=== PATIENT | male | born 1985 | race African-American/Black ===

== ENCOUNTER 2025-11-13 16:31 | Inpatient (IN) | payer MEDICAID ==
[~2025-11-13] VITALS: Ht 167.6 cm; Wt 80.7 kg
[2025-11-13 16:39] VITALS: O2SAT 99
[2025-11-13] MEDS: IBUPROFEN 600MG TABLET PO ONE (20:11)
[2025-11-13 21:43] LABS: CREATININE 1.1 mg/dL (0.6-1.3); UREA NITROGEN BLOOD 11 mg/dL (9-23)
[2025-11-13 21:44] LABS: BASOPHILS % 0.4 % (0.0-2.0); EOSINOPHILS % 3.5 % (0.0-5.0); HEMATOCRIT. 50.0 % (42.0-52.0); HEMOGLOBIN. 16.0 g/dL (14.0-18.0); LYMPHOCYTES % 53.5 % (20.0-50.0); MEAN PLATELET VOLUME 8.6 fl (7.4-10.4); MONOCYTES % 10.7 % (2.0-8.0); NEUTROPHILS % 31.9 % (40.0-76.0); PLATELET 188 x1000/uL (130-400); PROTEIN TOTAL 8.2 g/dL (6.0-8.3); RED BLOOD CELL COUNT 5.67 mill/uL (4.7-6.1); RED CELL DISTRIBUTION WIDTH 13.5 % (11.6-14.6)
[2025-11-13 21:45] LABS: ASPARTATE AMINOTRANSFERASE 52 IU/L (<34); BILIRUBIN DIRECT 0.3 mg/dL (<=3.0); BILIRUBIN TOTAL 1.0 mg/dL (0.1-1.0)
[2025-11-13] MEDS: CEFTRIAXONE 1GM/50ML 50 ML IV ONE (23:01)
[2025-11-13] MEDS: MORPHINE SULFATE 4 MG/ML INJ (FOR IV/IM USE) IV ONE (23:03)
[2025-11-14] MEDS: VANCOMYCIN 1G PREMIX 200 ML IV ONE (01:14)
[2025-11-14 03:06] VITALS: BP 116/74; PULSE 52; RESP 20; TEMP 36.418
[2025-11-14] MEDS ORDERED: HYDROCODONE/ACETAMINOPHEN 5/325MG TABLET PO PRN (03:15)
[2025-11-14 04:00] VITALS: BP 118/65; PULSE 62; RESP 18; TEMP 35.7; O2SAT 100
[2025-11-14] MEDS: PIPERACILLIN/TAZO 3.375G/50ML 50 ML IV SCH (06:09)
[2025-11-14] MEDS ORDERED: NALOXONE HCL 0.4MG/ML VIAL IV PRN (10:45)
[2025-11-14] MEDS ORDERED: VANCOMYCIN 500MG/100ML IV SCH (11:00)
[2025-11-14 12:00] VITALS: BP 100/66; PULSE 64; RESP 18; TEMP 36.6; O2SAT 98
[2025-11-14] MEDS ORDERED: VANCOMYCIN 1GM/200ML PMX (BAXTER) IV SCH (15:00)
[2025-11-14 16:00] VITALS: BP 120/75; PULSE 65; RESP 18; TEMP 36.5; O2SAT 97
[2025-11-14 17:26] LABS: BASOPHILS % 0.7 % (0.0-2.0); EOSINOPHILS % 5.1 % (0.0-5.0); HEMATOCRIT. 43.8 % (42.0-52.0); HEMOGLOBIN. 14.8 g/dL (14.0-18.0); LYMPHOCYTES % 47.0 % (20.0-50.0); MEAN PLATELET VOLUME 8.9 fl (7.4-10.4); MONOCYTES % 14.5 % (2.0-8.0); NEUTROPHILS % 32.7 % (40.0-76.0); PLATELET 204 x1000/uL (130-400); RED BLOOD CELL COUNT 5.13 mill/uL (4.7-6.1); RED CELL DISTRIBUTION WIDTH 12.9 % (11.6-14.6)
[2025-11-14] MEDS: VANCOMYCIN 1.25GM/250ML 250 ML IV NR (17:35)
[2025-11-14 17:49] LABS: CREATININE 1.4 mg/dL (0.6-1.3)
[2025-11-14 17:50] LABS: UREA NITROGEN BLOOD 15 mg/dL (9-23)
[2025-11-14 20:00] VITALS: BP 94/49; PULSE 62; RESP 16; TEMP 36.7; O2SAT 95
[2025-11-15] VITALS: BP 93/45; PULSE 65; RESP 16; TEMP 36.9; O2SAT 95
[2025-11-15 04:00] VITALS: BP 115/50; PULSE 67; RESP 16; TEMP 36.4; O2SAT 97
[2025-11-15] MEDS: VANCOMYCIN 1GM PMX (XELLIA) 200 ML IV SCH (05:34)
[2025-11-15 08:00] VITALS: BP 103/63; PULSE 66; RESP 17; TEMP 36.7; O2SAT 98
[2025-11-15 11:57] LABS: BASOPHILS % 0.9 % (0.0-2.0); EOSINOPHILS % 3.9 % (0.0-5.0); HEMATOCRIT. 45.0 % (42.0-52.0); HEMOGLOBIN. 15.3 g/dL (14.0-18.0); LYMPHOCYTES % 54.1 % (20.0-50.0); MEAN PLATELET VOLUME 8.7 fl (7.4-10.4); MONOCYTES % 14.1 % (2.0-8.0); NEUTROPHILS % 27.0 % (40.0-76.0); PLATELET 199 x1000/uL (130-400); RED BLOOD CELL COUNT 5.21 mill/uL (4.7-6.1); RED CELL DISTRIBUTION WIDTH 13.0 % (11.6-14.6)
[2025-11-15 12:00] VITALS: BP 120/72; PULSE 60; RESP 18; TEMP 36.8; O2SAT 99
[2025-11-15 12:02] LABS: CREATININE 1.1 mg/dL (0.6-1.3); UREA NITROGEN BLOOD 11 mg/dL (9-23)
[2025-11-15 16:00] VITALS: BP 112/66; PULSE 83; RESP 16; TEMP 37; O2SAT 99
[2025-11-15 20:00] VITALS: BP 122/60; PULSE 76; RESP 17; TEMP 36.3; O2SAT 96
[2025-11-16] VITALS: BP 106/65; PULSE 71; RESP 17; TEMP 36.2; O2SAT 98
[2025-11-16 04:00] VITALS: RESP 17
[2025-11-16 06:04] LABS: CREATININE 1.2 mg/dL (0.6-1.3); UREA NITROGEN BLOOD 11 mg/dL (9-23)
[2025-11-16 06:15] LABS: BASOPHILS % 0.3 % (0.0-2.0); EOSINOPHILS % 4.4 % (0.0-5.0); HEMATOCRIT. 43.7 % (42.0-52.0); HEMOGLOBIN. 14.7 g/dL (14.0-18.0); LYMPHOCYTES % 56.5 % (20.0-50.0); MEAN PLATELET VOLUME 8.9 fl (7.4-10.4); MONOCYTES % 12.5 % (2.0-8.0); NEUTROPHILS % 26.3 % (40.0-76.0); PLATELET 192 x1000/uL (130-400); RED BLOOD CELL COUNT 5.12 mill/uL (4.7-6.1); RED CELL DISTRIBUTION WIDTH 12.7 % (11.6-14.6)
[2025-11-16 08:00] VITALS: BP 113/67; PULSE 73; RESP 18; TEMP 36.6
[2025-11-16] MEDS: VANCOMYCIN 1.25GM/250ML IV SCH (10:20)
[2025-11-16 12:00] VITALS: BP 127/79; PULSE 60; RESP 16; TEMP 36.2
[2025-11-16 16:00] VITALS: BP 122/65; PULSE 71; RESP 18; TEMP 36.3
[2025-11-16 20:00] VITALS: BP 111/66; PULSE 61; RESP 18; TEMP 36.5; O2SAT 98
[2025-11-17] VITALS: BP 117/68; PULSE 60; RESP 16; TEMP 36.4; O2SAT 100
[2025-11-17 04:00] VITALS: BP 106/67; PULSE 63; RESP 18; TEMP 36.6; O2SAT 99
[2025-11-17 08:00] VITALS: BP 123/72; PULSE 66; RESP 18; TEMP 36.8; O2SAT 100
[2025-11-17 09:21] LABS: CREATININE 1.2 mg/dL (0.6-1.3)
[2025-11-17 09:22] LABS: UREA NITROGEN BLOOD 6 mg/dL (9-23)
[2025-11-17] MEDS: VANCOMYCIN 1GM PMX (XELLIA) 200 ML IV SCH (11:59)
[2025-11-17 12:00] VITALS: BP 107/62; PULSE 65; RESP 16; TEMP 36.8; O2SAT 99
[2025-11-17] MEDS ORDERED: VANCOMYCIN 1.25GM/250ML IV SCH (15:00)
[2025-11-17 16:00] VITALS: BP 120/74; PULSE 65; RESP 16; TEMP 36.7; O2SAT 100
[2025-11-17 20:00] VITALS: BP 129/81; PULSE 68; RESP 18; TEMP 36.7; O2SAT 99
[2025-11-18] VITALS: BP 102/66; PULSE 75; RESP 16; TEMP 36.8; O2SAT 97
[2025-11-18 04:00] VITALS: BP 108/60; PULSE 67; RESP 18; TEMP 36.7; O2SAT 98
[2025-11-18 08:00] VITALS: BP 118/78; PULSE 65; RESP 18; TEMP 36.3; O2SAT 99
[2025-11-18 08:57] LABS: BASOPHILS % 0.7 % (0.0-2.0); EOSINOPHILS % 4.2 % (0.0-5.0); HEMATOCRIT. 43.9 % (42.0-52.0); HEMOGLOBIN. 14.7 g/dL (14.0-18.0); LYMPHOCYTES % 54.8 % (20.0-50.0); MEAN PLATELET VOLUME 8.9 fl (7.4-10.4); MONOCYTES % 12.5 % (2.0-8.0); NEUTROPHILS % 27.8 % (40.0-76.0); PLATELET 195 x1000/uL (130-400); RED BLOOD CELL COUNT 5.12 mill/uL (4.7-6.1); RED CELL DISTRIBUTION WIDTH 12.8 % (11.6-14.6)
[2025-11-18 09:11] LABS: BASOPHILS % 0.4 % (0.0-2.0); EOSINOPHILS % 4.0 % (0.0-5.0); HEMATOCRIT. 42.5 % (42.0-52.0); HEMOGLOBIN. 14.4 g/dL (14.0-18.0); LYMPHOCYTES % 54.5 % (20.0-50.0); MEAN PLATELET VOLUME 8.7 fl (7.4-10.4); MONOCYTES % 12.6 % (2.0-8.0); NEUTROPHILS % 28.5 % (40.0-76.0); PLATELET 180 x1000/uL (130-400); RED BLOOD CELL COUNT 4.98 mill/uL (4.7-6.1); RED CELL DISTRIBUTION WIDTH 13.2 % (11.6-14.6)
[2025-11-18 09:32] LABS: CREATININE 1.2 mg/dL (0.6-1.3)
[2025-11-18 09:33] LABS: UREA NITROGEN BLOOD 11 mg/dL (9-23)
[2025-11-18 12:00] VITALS: BP 129/82; PULSE 68; RESP 18; TEMP 36.4; O2SAT 98
[2025-11-18 16:00] VITALS: BP 129/86; PULSE 74; RESP 18; TEMP 36.2; O2SAT 99
[2025-11-18] MEDS ORDERED: SULF1TAB48 MT (17:46)
[2025-11-18 20:00] VITALS: BP 114/66; PULSE 72; RESP 18; TEMP 36.9; O2SAT 98
[2025-11-19] VITALS: BP 94/51; PULSE 69; RESP 18; TEMP 36.7; O2SAT 96
[2025-11-19 04:00] VITALS: BP 107/66; PULSE 90; RESP 18; TEMP 36.8; O2SAT 95
[2025-11-19 07:37] LABS: CREATININE 1.2 mg/dL (0.6-1.3)
[2025-11-19 07:38] LABS: UREA NITROGEN BLOOD 7 mg/dL (9-23)
[2025-11-19 08:00] VITALS: BP 120/70; PULSE 70; RESP 18; TEMP 36.7; O2SAT 95
[2025-11-19] MEDS ORDERED: LIDOCAINE HCL 1% 10 MG/ML 10ML VIAL ONE (08:05)
[2025-11-19 12:00] VITALS: BP 109/66; PULSE 76; RESP 17; TEMP 36.6; O2SAT 96
[2025-11-19 16:00] VITALS: BP 107/56; PULSE 71; RESP 18; TEMP 36.6; O2SAT 96
[2025-11-19 20:00] VITALS: BP 101/60; PULSE 80; RESP 17; TEMP 36.7; O2SAT 96
[2025-11-19] MEDS: VANCOMYCIN 1G PREMIX 200 ML IV SCH (21:14)
[2025-11-20] VITALS: BP 101/53; PULSE 83; RESP 17; TEMP 36.7; O2SAT 96
[2025-11-20 04:00] VITALS: BP 100/50; PULSE 84; RESP 16; TEMP 36.7; O2SAT 98
[2025-11-20 08:00] VITALS: BP 101/60; PULSE 64; RESP 16; TEMP 36.6; O2SAT 96
[2025-11-20 12:00] VITALS: BP 131/80; PULSE 64; RESP 17; TEMP 36.4; O2SAT 99
[2025-11-20 16:00] VITALS: BP 141/86; PULSE 75; RESP 16; TEMP 36.6; O2SAT 100
[2025-11-20 20:00] VITALS: BP 117/79; PULSE 63; RESP 17; TEMP 36.7; O2SAT 98
[2025-11-21] VITALS: BP 120/86; PULSE 70; RESP 16; TEMP 36.5; O2SAT 98
[2025-11-21 04:00] VITALS: BP 107/64; PULSE 86; RESP 18; TEMP 36.5; O2SAT 99
[2025-11-21 08:00] VITALS: BP 109/69; PULSE 65; RESP 16; TEMP 36.7; O2SAT 98
[2025-11-21 11:38] LABS: BASOPHILS % 0.6 % (0.0-2.0); EOSINOPHILS % 3.8 % (0.0-5.0); HEMATOCRIT. 41.8 % (42.0-52.0); HEMOGLOBIN. 13.8 g/dL (14.0-18.0); LYMPHOCYTES % 52.0 % (20.0-50.0); MEAN PLATELET VOLUME 8.9 fl (7.4-10.4); MONOCYTES % 9.4 % (2.0-8.0); NEUTROPHILS % 34.2 % (40.0-76.0); PLATELET 172 x1000/uL (130-400); RED BLOOD CELL COUNT 4.76 mill/uL (4.7-6.1); RED CELL DISTRIBUTION WIDTH 13.2 % (11.6-14.6)
[2025-11-21 11:48] LABS: CREATININE 1.3 mg/dL (0.6-1.3)
[2025-11-21 11:49] LABS: UREA NITROGEN BLOOD 9 mg/dL (9-23)
[2025-11-21 12:00] VITALS: BP 108/67; PULSE 72; RESP 18; TEMP 37.1; O2SAT 98
[2025-11-21 16:00] VITALS: BP 110/68; PULSE 69; RESP 18; TEMP 36.9; O2SAT 98
[2025-11-21 20:00] VITALS: BP 123/71; PULSE 76; RESP 18; TEMP 36.7; O2SAT 96
[2025-11-22] VITALS: BP 119/68; PULSE 68; RESP 18; TEMP 36.3; O2SAT 98
[2025-11-22 08:00] VITALS: BP 112/68; PULSE 66; RESP 18; TEMP 37; O2SAT 99
[2025-11-22 09:33] LABS: BASOPHILS % 0.7 % (0.0-2.0); EOSINOPHILS % 4.4 % (0.0-5.0); HEMATOCRIT. 41.9 % (42.0-52.0); HEMOGLOBIN. 14.1 g/dL (14.0-18.0); LYMPHOCYTES % 51.4 % (20.0-50.0); MEAN PLATELET VOLUME 8.8 fl (7.4-10.4); MONOCYTES % 13.8 % (2.0-8.0); NEUTROPHILS % 29.7 % (40.0-76.0); PLATELET 187 x1000/uL (130-400); RED BLOOD CELL COUNT 4.86 mill/uL (4.7-6.1); RED CELL DISTRIBUTION WIDTH 12.9 % (11.6-14.6)
[2025-11-22 09:48] LABS: CREATININE 1.2 mg/dL (0.6-1.3); UREA NITROGEN BLOOD 12 mg/dL (9-23)
[2025-11-22] MEDS: POTASSIUM CHLORIDE 20MEQ TABLET SR PO NR (09:50)
[2025-11-22 10:09] LABS: CREATININE 1.1 mg/dL (0.6-1.3); UREA NITROGEN BLOOD 19 mg/dL (9-23)
[2025-11-22 12:00] VITALS: BP 107/59; PULSE 67; RESP 17; TEMP 37.3; O2SAT 99
== END 2025-11-22 15:28 | disposition home health service (06) | DRG 349 ==
LOC: ER 16:31 → 8EST 23:21 → EDBEDREQTM 23:23 → EDBEDREQ 23:23 → ENRESERV 23:51
PROVIDERS: ADMIT Internal Medicine; ATTEND Internal Medicine
PROC: 02HV33Z Insertion of Infusion Device into Superior Vena Cava, Percutaneous Approach (ICD-10-PCS; principal; 2025-11-19)
PROC: B548ZZA Ultrasonography of Superior Vena Cava, Guidance (ICD-10-PCS; 2025-11-19)
DX: T84.622A Infection and inflammatory reaction due to internal fixation device of right tibia, initial encounter (principal); L97.919 Non-pressure chronic ulcer of unspecified part of right lower leg with unspecified severity; M86.8X6 Other osteomyelitis, lower leg; S81.001A Unspecified open wound, right knee, initial encounter; N28.9 Disorder of kidney and ureter, unspecified; X58.XXXA Exposure to other specified factors, initial encounter; Y93.89 Activity, other specified; Y92.89 Other specified places as the place of occurrence of the external cause; Y99.8 Other external cause status
CPT/HCPCS: 36415; 36573; 71045; 73560; 73590; 73718; 80048; 80076; 80202; 82550; 82962; 84145; 85025; 85651; 87070; 87077; 87186; 96365; 96366; 96375; 99285; C1725; C1769; J0696; J2003; J2270; J2543; J3373